=== PATIENT | male | born 1975 | race Caucasian/White ===

== ENCOUNTER 2020-09-06 05:31 | Emergency (ER) | payer OTHER ==
[2020-09-06 05:48] VITALS: BP 121/72
--- NOTE | 2020-09-06 06:02 | ED Physician Documentation ---
PD HPI OPHTHO - Stated complaint Stated Complaint: R EYE PX - Chief complaint Chief Complaint: Heent - History obtained from History obtained from: Patient - History of Present Illness Timing - onset: Yesterday (last evening, after coming in from doing yard work, he rubbed his right eye and felt onset of pain. Has scratchy feeling of FB upper medial area. It has continued into this morning, and bothered him through the night. Has tried Visine and irrigating eye.) Timing - details: Abrupt onset, Still present Location: Right Quality / character: Aching Associated symptoms: Redness, Tearing, FB sensation. No: Swelling, Discharge, Photophobia, Decreased vision Contributing factors: FB (he presumes FB as onset when rubbed eye after doing yardwork). No: Wears contacts Similar symptoms before: Has not had sx before Review of Systems Constitutional: denies: Fever, Chills Eyes: reports: Irritation. denies: Loss of vision, Decreased vision, Photophobia Nose: denies: Rhinorrhea / runny nose, Congestion Throat: denies: Sore throat Respiratory: denies: Cough PD PAST MEDICAL HISTORY - Past Medical History Past Medical History: No Cardiovascular: None Respiratory: None Neuro: None Endocrine/Autoimmune: None GI: None : None HEENT: None Psych: None Musculoskeletal: None Derm: None - Past Surgical History Past Surgical History: Yes General: Other Ortho: Other - Present Medications Home Medications: Ambulatory Orders Medication Instructions Recorded Confirmed Erythromycin Base [Erythromycin 1 applic OP QID #3.5 gm 09/06/20 Ophthalmic Ointment] Tetracaine 0.5% Ophth Drops 2 drops RIGHTEYE Q2H PRN #4 ml 09/06/20 [Tetracaine] - Allergies Allergies/Adverse Reactions: Allergies Allergy/AdvReac Type Severity Reaction Status Date / Time No Known Drug Allergies Allergy Verified 09/06/20 05:47 - Social History Does the pt smoke?: No Smoking Status: Never smoker Does the pt drink ETOH?: No Does the pt have substance abuse?: No - Immunizations Immunizations are current?: Yes - POLST Patient has POLST: No PD ED PE NORMAL - Vitals Vital signs reviewed: Yes - General General: Alert and oriented X 3, Well developed/nourished - HEENT HEENT: PERRL, EOMI PD ED PE EXPANDED - Eyes Eyes: Injected conj/sclera (hyperemic), Corneal abrasion (at the 1 oclock position, small linear. No FB noted including looking under lid and with flourescein.), Fluorescein uptake, Anterior chambers clear. No: Eyelid swelling, Eyelid erythema, Conj/sclera FB, Corneal FB, Corneal ulcer Results - Vitals Vitals: Vital Signs - 24 hr 09/06/20 05:45 Temperature 36.0 C L Heart Rate 80 Respiratory 15 Rate Blood Pressure 121/72 O2 Saturation 97 Oxygen O2 Source Room air PD MEDICAL DECISION MAKING - ED course Complexity details: re-evaluated patient (improved with proparacaine, though not completely.), considered differential (No FB seen. There is an abrasion noted 1 oclock area under upper lid. Pupil reactive. Not light sensitive. ), d/w patient Departure - Departure Disposition: 01 Home, Self Care Clinical Impression: Corneal abrasion Qualifiers: Encounter type: initial encounter Laterality: right Qualified Code(s): S05.01XA - Injury of conjunctiva and corneal abrasion without foreign body, right eye, initial encounter Eye pain Qualifiers: Laterality: right Qualified Code(s): H57.11 - Ocular pain, right eye Condition: Stable Record reviewed to determine appropriate education?: Yes Instructions: ED Eye Injury Corneal Abrasion Follow-Up: [facility] [Provider Group] Prescriptions: Erythromycin Base [Erythromycin Ophthalmic Ointment] 1 applic OP QID #3.5 gm Tetracaine 0.5% Ophth Drops [Tetracaine] 2 drops RIGHTEYE Q2H PRN #4 ml PRN Reason: Pain Comments: Tylenol ibuprofen if needed for pains. Main treatment is usually local. Numbing eyedrops can be used short-term for a day to help with the discomfort of the abrasion. Do not use it longer as we want to see if this is doing better in should not need treatment beyond that timeframe. Also use lubricating eye ointment every 3-4 hours to help with the discomfort as well. Recheck with an eyeglass frames polisher or return to the ER if not improving into tomorrow. Off work today to help rest the eye. Forms: Activity restrictions Discharge Date/Time: 09/06/20 06:48
[2020-09-06] MEDS ORDERED: PROPARACAINE 0.5% OPHTH DROPS 15 ML RIGHTEYE STA (06:03)
[2020-09-06] MEDS ORDERED: IBUPROFEN 600 MG TABLET PO STA (06:26)
[2020-09-06] MEDS ORDERED: ERYTHROMYCIN OPHTH OINT 1 GM TUBE RIGHTEYE STA (06:27)
[2020-09-06] MEDS ORDERED: ACETAMINOPHEN 500 MG TABLET PO STA (06:37)
== END 2020-09-06 06:48 | disposition home or self-care (01) ==
LOC: ED 05:31
DX: S05.01XA Injury of conjunctiva and corneal abrasion without foreign body, right eye, initial encounter (principal); X58.XXXA Exposure to other specified factors, initial encounter; Y93.H9 Activity, other involving exterior property and land maintenance, building and construction; H57.11 Ocular pain, right eye
CPT/HCPCS: 99282; 99283; J3490

== ENCOUNTER 2021-07-06 17:27 | Emergency (ER) | payer OTHER ==
[2021-07-06] MEDS ORDERED: oxyCODONE 5 MG TABLET PO STA (17:42)
--- NOTE | 2021-07-06 17:54 | ED Physician Documentation ---
History of Present Illness - Stated complaint Stated Complaint: R SHOULDER PX - Chief complaint Chief Complaint: Trauma Ext - History obtained from History obtained from: Patient - History of Present Illness Timing: Today Pain level max: 9 Pain level now: 9 - Additonal information Additional information: Patient is a 45-year-old male who presents to the emergency department stating that he was out in his backyard playing soccer with his children when he slipped, fell and injured the right ankle. He states that on the way down he tried to grab his right ankle and fell onto the right shoulder. Now has right shoulder pain as well. No head, neck, back pain. No numbness or tingling. Worse with movement, better with rest. Took Tylenol prior to arrival. Review of Systems Constitutional: denies: Fever, Chills Respiratory: denies: Cough GI: denies: Nausea, Vomiting, Diarrhea Skin: denies: Rash Musculoskeletal: denies: Neck pain, Back pain Neurologic: denies: Focal weakness, Numbness, Headache, Head injury PD PAST MEDICAL HISTORY - Past Medical History Past Medical History: No Cardiovascular: None Respiratory: None Neuro: None Endocrine/Autoimmune: None GI: None : None HEENT: None Psych: None Musculoskeletal: None Derm: None - Past Surgical History Past Surgical History: Yes General: Other Ortho: Other - Present Medications Home Medications: Ambulatory Orders Medication Instructions Recorded Confirmed Ibuprofen [Motrin] 800 mg PO QPM 07/06/21 07/06/21 Oxycodone HCl/Acetaminophen 1 - 2 each PO Q6H PRN #14 tablet 07/06/21 [Percocet 5-325 mg Tablet] clonazePAM [Klonopin] 1 mg PO QPM 07/06/21 07/06/21 - Allergies Allergies/Adverse Reactions: Allergies Allergy/AdvReac Type Severity Reaction Status Date / Time No Known Drug Allergies Allergy Verified 07/06/21 17:32 - Social History Does the pt smoke?: No Smoking Status: Never smoker Does the pt drink ETOH?: No Does the pt have substance abuse?: No - Immunizations Immunizations are current?: Yes - POLST Patient has POLST: No PD ED PE NORMAL - Vitals Vital signs reviewed: Yes - General General: Alert and oriented X 3, No acute distress, Well developed/nourished - HEENT HEENT: Atraumatic, Moist mucous membranes - Neck Neck: Supple, no meningeal sign, No bony TTP - Cardiac Cardiac: RRR - Respiratory Respiratory: No respiratory distress, Clear bilaterally - Back Back: No spinal TTP - Derm Derm: Warm and dry - Extremities Extremities: Other - Neuro Neuro: Alert and oriented X 3 - Psych Psych: Normal mood, Normal affect - Free text exam Free text exam: Tender to palpation right lower extremity, right lateral malleolus with mild swelling and tenderness. Also tender palpation over the right anterior glenohumeral joint. No deformity. Neurovascular intact. Very limited range of motion of the right shoulder secondary to pain. No tenderness over the Clavicle. Neurovascular intact including the axillary nerve Results - Vitals Vitals: Vital Signs - 24 hr 07/06/21 07/06/21 17:34 19:30 Temperature 36.8 C Heart Rate 88 75 Respiratory 18 14 Rate Blood Pressure 125/77 115/90 H O2 Saturation 99 97 Oxygen O2 Source Room air - Rads (name of study) Right shoulder x-ray Radiology: Final report received, EMP read contemporaneously, See rad report (No acute abnormality) Right ankle x-ray Radiology: Final report received, EMP read contemporaneously, See rad report (No acute abnormality) PD MEDICAL DECISION MAKING - ED course Complexity details: reviewed results, re-evaluated patient, considered differential, d/w patient ED course: No acute finding on x-rays of the shoulder or ankle. Placed in a sling for comfort. Will prescribe pain medication for home. Possible rotator cuff injury? We will have him follow-up with orthopedics for repeat evaluation in 1 week. He declines any bracing for the ankle. I am prescribing a short course of short-acting opioid pain medication for this patient. I have reviewed the patients [employer] and no concerning findings were noted. I have discussed that the opioids are for short term therapy only, and will not be refilled from the ED. patient counseled regarding signs and symptoms for which I believe and urgent re-evaluation would be necessary. Patient with good understanding of and agreement to plan and is comfortable going home at this time This document was made in part using voice recognition software. While efforts are made to proofread this document, sound alike and grammatical errors may occur. Departure - Departure Disposition: 01 Home, Self Care Clinical Impression: Sprain of shoulder, right Qualifiers: Encounter type: initial encounter Shoulder sprain type: unspecified sprain Qualified Code(s): S43.401A - Unspecified sprain of right shoulder joint, initial encounter Sprain of ankle, right Qualifiers: Encounter type: initial encounter Involved ligament of ankle: unspecified ligament Qualified Code(s): S93.401A - Sprain of unspecified ligament of right ankle, initial encounter Condition: Good Instructions: ED Sprain Shoulder, ED Sprain Ankle Follow-Up: JOHN MCINTOSH III, MD [Primary Care Provider] - Within 1 week [facility] [Provider Group] - Within 1 week Prescriptions: Oxycodone HCl/Acetaminophen [Percocet 5-325 mg Tablet] 1 - 2 each PO Q6H PRN #14 tablet PRN Reason: pain Comments: Your prescriptions were sent to the [facility] pharmacy. Wear the sling as needed for comfort. You can gently stretch the shoulder as well. Please return if you worsen. Please follow-up with your doctor for further care. I would recommend that you see an orthopedist to exclude any rotator cuff injury. Your exam is limited tonight secondary to swelling and pain. The x-rays of your shoulder and ankle do not show any acute injuries. I am prescribing a short course of narcotic pain medication for you. These are potentially dangerous and addictive medications that should be used carefully. These medications may constipate you. Take an nbfo-rtg-txgxrga stool softener (docusate) twice daily with plenty of water while taking these medications. If you go 24 hours without a bowel movement, take chfh-[id number] miralax, per package instructions. Do not drink or drive while taking these medications. If you received narcotic or sedating medications while in the emergency department, do not drive for 24 hours. Store this medication in a safe, secure place and out of reach of children. It is a violation of federal law to give or sell this medication to another person or to use in a manner other than prescribed. The ED will not refill narcotic prescriptions, including prescriptions lost or stolen. To dispose of unwanted medications: 1. [facility] [address] in [place] has a medication drop box. They accept prescription medications (in pill form) Wednesday through Wednesday 9:00 a.m. to 5:00 p.m. 2. The [facility] accepts prescription medications (in pill form only) for disposal year round. Call for more inform ation. 3. Contact the [facility] for the next [facility] sponsored prescription drug collection event. , [phone], or [phone]; Discharge Date/Time: 07/06/21 19:35
--- NOTE | 2021-07-06 18:47 | XRAY Report ---
PROCEDURE: Ankle 3 View RT INDICATIONS: fall, R ankle pain TECHNIQUE: 3 views of the ankle were acquired. COMPARISON: None. FINDINGS: BONES: No acute, displaced fracture or dislocation. The ankle mortise is maintained on these nonstre ssed views. A 6.8 mm ossific lesion projects from the lateral malleolus, compatible with remote traum atic injury and/or degenerative change. SOFT TISSUES: Small tibiotalar joint effusion. IMPRESSION: 1.No acute osseous abnormality. Reviewed by: Kj Mccartney MD on 07/06/2021 6:46 PM PDT Approved by: Kj Mccartney MD on 07/06/2021 6:46 PM PDT Station ID: [id number]
--- NOTE | 2021-07-06 18:49 | XRAY Report ---
PROCEDURE: Shoulder 3 View RT INDICATIONS: fall, R shoulder pain TECHNIQUE: 3 views of the shoulder were acquired. COMPARISON: None. FINDINGS: BONES: No acute, displaced fracture. The joint spaces are maintained. SOFT TISSUES: No focal abnormality or appreciable pneumothorax. IMPRESSION: 1.No acute osseous abnormality. Reviewed by: Kj Mccartney MD on 07/06/2021 6:47 PM PDT Approved by: Kj Mccartney MD on 07/06/2021 6:47 PM PDT Station ID: [id number]
[2021-07-06 19:37] VITALS: BP 115/90
== END 2021-07-06 19:35 | disposition home or self-care (01) ==
LOC: ED 17:27
DX: S43.401A Unspecified sprain of right shoulder joint, initial encounter (principal); S93.401A Sprain of unspecified ligament of right ankle, initial encounter; W01.0XXA Fall on same level from slipping, tripping and stumbling without subsequent striking against object, initial encounter; Y93.66 Activity, soccer
CPT/HCPCS: 73030; 73610; 99282; 99283; A9270

== ENCOUNTER 2023-02-08 10:19 | Outpatient (CLI) | payer OTHER ==
--- NOTE | 2023-02-08 13:11 | MRI Report ---
PROCEDURE: CERVICAL SPINE WO INDICATIONS: CERVICAL RADICULOPATHY TECHNIQUE: Noncontrast sagittal T1 spin echo and T2 fast spin echo, sagittal STIR, foraminal oblique sagittal T2 fast spin echo, and axial gradient echo or T2 fast spin echo through the cervical spine. COMPARISON: None. FINDINGS: Image quality: Excellent. Alignment and Curvature: Straightening of normal cervical lordosis. Minimal anterolisthesis of C3 on C4.. Bone Marrow: Marrow demonstrates normal overall signal. Spinal Cord: Visualized spinal cord has normal size and signal. No cerebellar tonsillar herniation. Paraspinous Soft Tissues: No paravertebral masses. Prevertebral soft tissues are normal in thicknes s. C2-C3: Disc desiccation and mild posterior disc ossify thrombus. No significant central canal stenos is. Facet and uncovertebral arthropathy. Moderate right and mild left neuroforaminal stenosis. C3-C4: Disc desiccation and posterior disc osteophyte complex abutting the ventral cord. Mild centr al canal stenosis. Facet and uncovertebral arthropathy. Severe left and moderate to severe right neur oforaminal stenosis. C4-C5: Disc desiccation. Minimal posterior disc ossify comments. No central canal stenosis. Facet an d uncovertebral arthropathy. Mild to moderate bilateral neuroforaminal stenosis. C5-C6: Disc desiccation. No central canal stenosis. Facet and uncovertebral arthropathy. Mild to mod erate bilateral neuroforaminal stenosis. C6-C7: Disc desiccation and minimal posterior disc osteophyte complex. No central canal stenosis. Fa cet and uncovertebral arthropathy. Mild bilateral neuroforaminal stenosis. C7-T1: No central canal or neuroforaminal stenosis. IMPRESSION: 1.Multilevel degenerative changes of the cervical spine as described above. 2.Mild central canal stenosis at C3-C4. Otherwise, no significant central canal stenosis. 3.Neuroforaminal stenosis is most pronounced at C3-C4 with severe left and moderate to severe right. Other levels of mild and moderate neuroforaminal stenosis as above. Reviewed by: Jv Contreras MD on 02/08/2023 1:10 PM PST Approved by: Jv Contreras MD on 02/08/2023 1:10 PM PST Station ID: [id number]
== END 2023-02-08 10:20 | disposition home or self-care (01) ==
LOC: DI 10:19
PROVIDERS: ATTEND Student in an Organized Health Care Education/Training Program
DX: M48.02 Spinal stenosis, cervical region (principal); M47.22 Other spondylosis with radiculopathy, cervical region; M50.11 Cervical disc disorder with radiculopathy, high cervical region

== ENCOUNTER 2023-04-26 10:07 | Outpatient (CLI) | payer OTHER ==
--- NOTE | 2023-04-26 22:22 | SLEEP CARE CONSULTATION ---
Information from patient questionnaire entered by Shad Marmolejo. I have reviewed and concur with the information entered by Shad Marmolejo. This document represents the service I personally performed and the decisions made by me, Rosalia Medina MD, [facility]. History of Present Illness Service Date and Time: 04/26/2023 1007 Reason for Visit: New patient Chief Complaint: reports: Insomnia, Unrefreshed sleep, Snoring, Excessive daytime sleepiness, Observed pauses in breathing, Frequent awakenings at night Date of Onset: 4YRS Usual bedtime: 1030PM Time it takes to fall asleep: 1HR Snores at night: Yes Observed to quit breathing while asleep: Yes Sleeps alone due to snoring: No Number of times waking at night: 2-3 Reasons for waking at night: reports: Choking, Gasping for air Toss, Turn, or Twitch while sleeping: Yes Recalls having dreams: Yes Usually gets out of bed at: 6AM Feels refreshed in the morning: No Morning headache: Yes Sleepy or fatigued during the day: Yes Ever fallen asleep while driving: No Takes day naps: Yes Dreams during day naps: No Prior sleep studies: Yes Additional HPI information: I had the pleasure of seeing Mr. Dalton today regarding the possibility of him having a sleep disorder. As you know, he is a 47-year-old gentleman who complains of loud snore, observed apneas, frequent awakenings, unrefreshed sleep, and excessive daytime sleepiness for the past 4 years. He had a home sleep apnea test (HSAT) in 2019 showing mild obstructive sleep apnea-hypopnea with an AHI of 5.6 and viv oxygen saturation 60% (most likely an artifact because it cannot be seen on the oxygen saturation tracing). He said because of the COVID pandemic, CPAP was not started. He is here today to get started on the treatment. The patient tells me that he normally goes to bed around 10:30 pm, and it takes him approximately 60 minutes to fall asleep. He has been told that he snores loudly and irregularly at night. He has also been observed to stop breathing in his sleep. His can still sleep in the same bed. He can recall waking up on the average of 2 - 3 times during the night. Most of the time he wakes up because of his own snoring, choking, and having to gasp for air. In the morning he usually gets up out of the bed around 6 a.m. not feeling refreshed nor rested. He usually has a morning headache that goes away in about 2 hours. During the day he complains of feeling sleepy and fatigued. His score on [place] Sleepiness Scale is 12 out of 24. He never has fallen asleep while driving nor has had any accident due to sleepiness. He usually takes naps during the day. He reports having impaired concentration during the day. - Parasomnia Symptoms Walks in sleep: No Talks in sleep: No Ever acted out dreams in sleep: No Ever felt weak in the knees when startled or emotional: No Bothered by creepy, crawly, restless sensations in legs: No Problems with memory or concentration: Yes Subjective Initial [place] Sleepiness Scale score: 12 (04/07/23) Past Medical History Past Medical History: reports: Anxiety, Depression, Other (PINCHED NECK NERVE, BACK PAIN, TMJ, FACIAL SPASMS, KNEE PAIN, IBD, MIGRAINS) Social History The patient's occupation is a AM. Patient is and lives in [place]. Have you smoked in the past 12 months: No Cigarettes per day (20/pack): 20 Years of smokin Quit date: 2009 Smoking Pack Years: 14.0 Alcohol use: Yes Alcohol amount and frequency: 2 2 TIMES A WEEK Caffeine use: Yes Caffeine amount and frequency: 2 PER DAY Family History Family history of sleep disordered breathing: Yes Family Hx Sleep Apnea: Mother: Snoring, Sleep apnea - Untreated, Father: Snoring, Sleep apnea - Untreated Allergies and Home Medications Known drug allergies: No Drug allergies reviewed: Yes Home medication list reviewed: Yes Allergy and home medication list: Allergies No Known Drug Allergies Allergy (Verified 04/23/23 10:20) Review of Systems Weight gain over past 5 years: 40 Cardiovascular: denies: high blood pressure, palpitations, chest pain, irregular heart rate or pulse, leg or foot swelling, have to sleep sitting up, other Respiratory: reports: chronic cough Gastrointestinal: reports: diarrhea Urinary: denies: incontinence, frequency, urgency, impotence, other Neurological: reports: headaches Psychiatric: reports: anxiety, depression Ear/Nose/Throat: reports: sinus problems, wisdom teeth removed Endocrine: reports: sluggishness Musculoskeletal: reports: joint pain, neck pain, back pain, muscle pain or cramping, mobility problems Immunologic: denies: sneezing, rash, itching, allergies to food or environment, other Physical Exam Vital signs obtained and entered by: SHAD Peterson MA Blood Pressure: 125/87 (LEFT ARM) Cuff size: regular Heart Rate: 110 O2 Saturation: 98 Height: 5 ft 10 in Weight: 195 lb 12.8 oz Body Mass Index: 28.0 BMI Classification: Overweight Neck circumference: 16 Mood/affect: Normal HEENT: No craniofacial malformation Nostrils: patent to airflow Turbinates: normal Septum: midline Mouth and throat: narrow oropharynx Soft palate: long Hard palate: normal Uvula: normal Uvula visualization: 50% Mallampati Class II Tongue: normal in size Tonsils: small Chin and jaw: normal size and position Neck: normal w/o lymphadenopathy or thyromegaly Heart: regular rate and rhythm Lungs: clear bilaterally Extremities: no edema or clubbing Neurologic: intact Impression and Plan IMPRESSION: 1. Obstructive Sleep Apnea-Hypopnea Syndrome, mild, not yet treated. The patient appears to be symptomatic for loud and irregular snoring, frequent awakenings during the night, nocturnal choking, unrefreshed sleep, cognitive impairment, and daytime hypersomnolence. Narrow oropharynx is a common predisposing factors for obstructive sleep apnea-hypopnea syndrome. I recommend proceeding to CPAP titration study to determine the optimal treatment pressure and mask fit. Plan: 1. Schedule manual CPAP titration study and return in 1 to 2 weeks after the study to discuss result and initiate therapy. 2. Avoid long distance driving or when feeling sleepy. 3. Avoid alcohol, sedatives, and muscle relaxants around bedtime. 4. Attempt to lose weight. Follow up with [facility] Care in: 1-2 months Visit Type: In Office Time Spent with Patient (minutes): 15 Provider Statement: I spent 100% of the Face to Face Visit with the patient with greater than 50% spent counseling the patient and coordination of care.
[2023-04-26 22:25] VITALS: BP 125/87; O2SAT 98
== END 2023-04-26 10:08 | disposition home or self-care (01) ==
LOC: SC 10:07
PROVIDERS: ATTEND Internal Medicine Pulmonary Disease
DX: G47.33 Obstructive sleep apnea (adult) (pediatric) (principal)
CPT/HCPCS: 99202; 99212

== ENCOUNTER 2023-05-18 20:23 | Outpatient (CLI) | payer OTHER | END 2023-05-18 20:24 | disposition home or self-care (01) | LOC: SC 20:23 | PROVIDERS: ATTEND Internal Medicine Pulmonary Disease | DX: G47.33 Obstructive sleep apnea (adult) (pediatric) (principal) | CPT/HCPCS: 95811 ==

== ENCOUNTER 2023-06-02 10:31 | Outpatient (CLI) | payer OTHER ==
--- NOTE | 2023-06-02 10:05 | SLEEP CARE CONSULTATION ---
Information from patient questionnaire entered by Shameka Marmolejo. I have reviewed and concur with the information entered by Shameka Marmolejo. This document represents the service I personally performed and the decisions made by , Lupe Walsh ARNP. History of Present Illness Service Date and Time: 06/02/2023 0940 Initial [place] Sleepiness Scale score: 12 (04/07/23) Current [place] Sleepiness Scale score: 11 (06/02/23) Additional HPI information: KAHLIL MURRELL returns via telephone appointment for follow up of the sleep study with a manual CPAP titration study performed on 05/18/23. The patient was informed of the following polysomnography findings: CPAP at 5 cmH2O appeared to be optimal (AHI of 0.3 per hour on the pressure). There was supine REM sleep on the pressure. Oxygen saturation was normal throughout the night. The patient appeared to have tolerated positive airway pressure therapy fairly well. I explained how CPAP machine works and what to expect when using the machine. Using CPAP every night in order to get used to it was emphasized. Patient advised to put CPAP mask on before getting into bed so as not to fall asleep without CPAP. To assist acclimation to CPAP use, it could also be used for a short time during day while reading or watching TV. The patient was instructed to call the CPAP supplier to discuss any mechanical problem that may occur. If the mask given is uncomfortable or is difficult to keep on through the night even with adjustment, contact the CPAP supplier as many will replace with another mask style if notified before 30 days. If snoring or perceives is not getting enough air or too much air from the machine, notify this office. Patient counseled not drink alcohol less than 4 hours before bedtime as it can increase snoring and apnea. Patient was cautioned about risks of drowsy driving until sleepiness symptoms resolve. Patient denies drowsy driving. Sleep Study - Results Type of Sleep Study: Polysomnography (TITRATION F/U COMPLETED 05/18/23) Prior sleep studies: Yes Polysomnography/Home Sleep Study results: IMPRESSION: The quality of the study is good. CPAP was initiated at 5 cmH2O and titrated up to CPAP at 5 cmH2O. CPAP at 5 cmH2O appeared to be optimal (AHI of 0.3 per hour on the pressure). There was supine REM sleep on the pressure. Oxygen saturation was normal throughout the night. The patient appeared to have tolerated positive airway pressure therapy fairly well. The patients sleep efficiency was reduced due to sleep onset insomnia and director of early childhood awakening. The sleep architecture was relatively normal considering the first-night effect. There was no periodic leg movement of sleep. Cardiac rhythm was normal sinus rhythm without significant arrhythmia. No abnormal behavior (parasomnia) observed during the night. Allergies and Home Medications Known drug allergies: No Drug allergies reviewed: Yes Home medication list reviewed: Yes (no changes) Allergy and home medication list: Allergies No Known Drug Allergies Allergy (Verified 05/31/23 09:43) Review of Systems Review of systems same as previous: Yes (NO CHANGE) Physical Exam Vital signs obtained and entered by: SHAMEKA Peterson MA Height: 5 ft 10 in (PER PT ) Weight: 193 lb (PER PT) Body Mass Index: 27.6 BMI Classification: Overweight Impression and Plan 1. Obstructive Sleep Apnea-Hypopnea Syndrome, mild. Kahlil returns to office after titration study to be set up on CPAP therapy. Positive pressure therapy could benefit anxiety, depression and migraines. His titration study showed his optional pressure to be at 5 cmH2O and that 4-6 cmH2O would also be appropriate. The patient will be started on nasal autoCPAP therapy with pressure set at 4-6 cmH2O. Compliance guidelines also reviewed. A copy of compliance guidelines will be given for reference at check out. He voiced understanding and agreement with plan of care. 2. Overweight, unspecified. Currently patients BMI is 27.6. Obesity increases the risk of apnea, CPAP pressure requirements and overall health risks especially cardiovascular and diabetes. Thus patient is advised to lose weight. * Nasal auto CPAP therapy, pressure at 4-6 cmH2O. * Attempt to lose weight. * Avoid alcohol consumption near bedtime. * Avoid supine sleep until using CPAP. * The patient is again cautioned about driving until sleepiness completely resolves. * Return one month after CPAP obtained. I will assess response to therapy and compliance at that time. Counseling Topics: Weight loss health impact Prescriptions: Auto CPAP Visit Type: Telehealth Phone Video Type: Jasson Patient Location: Home Location of Provider: Office Patient agrees and consents to this telehealth visit type: Yes Time Spent with Patient (minutes): 14 Provider Statement: I spent 100% of the Telehealth Phone Call with the patient with greater than 50% spent counseling the patient and coordination of care.
== END 2023-06-02 10:32 | disposition home or self-care (01) ==
LOC: SC 10:31
PROVIDERS: ATTEND Nurse Practitioner Family
DX: G47.33 Obstructive sleep apnea (adult) (pediatric) (principal); E66.3 Overweight; Z68.27 Body mass index [BMI] 27.0-27.9, adult
CPT/HCPCS: 99442

== ENCOUNTER 2023-07-11 11:22 | Emergency (ER) | payer OTHER ==
[2023-07-11 11:52] VITALS: BP 121/89; O2SAT 95
--- NOTE | 2023-07-11 12:14 | XRAY Report ---
PROCEDURE: Chest 2V INDICATIONS: cough TECHNIQUE: 2 views of the chest were acquired. COMPARISON: None. FINDINGS: Surgical changes and devices: None. Lungs and pleura: No pleural effusions or pneumothorax. Lungs are clear. Mediastinum: Mediastinal contours appear normal. Heart size is normal. Bones and chest wall: No suspicious bony lesions. Overlying soft tissues appear unremarkable. IMPRESSION: No acute cardiopulmonary process. Reviewed by: Lokesh Carver MD on 07/11/2023 11:12 AM KATTY Approved by: Lokesh Carver MD on 07/11/2023 11:12 AM KATTY Station ID: [id number]
[2023-07-11 13:13] LABS: B. PARAPERTUSSIS- RESP PCR PAN NOT DETECTED; B. PERTUSSIS- RESP PCR PANEL NOT DETECTED; C. PNEUMONIAE- RESP PCR PANEL NOT DETECTED; CORONAVIRUS 229E-RESP PCR NOT DETECTED; CORONAVIRUS HKU1-RESP PCR NOT DETECTED; CORONAVIRUS NL63-RESP PCR NOT DETECTED; CORONAVIRUS OC43-RESP PCR NOT DETECTED; HUMAN METAPNEUMOVIRUS NOT DETECTED; INFLUENZA A- RESP PCR PANEL NOT DETECTED; INFLUENZA B - RESP PCR PANEL NOT DETECTED; M. PNEUMONIAE- RESP PCR PANEL NOT DETECTED; PARAINFLUENZA VIRUS 1 NOT DETECTED; PARAINFLUENZA VIRUS 2 NOT DETECTED; PARAINFLUENZA VIRUS 3 NOT DETECTED; PARAINFLUENZA VIRUS 4 NOT DETECTED; RHINOVIRUS/ENTEROVIRUS NOT DETECTED; RSV- RESP PCR PANEL NOT DETECTED; SARS-CoV-2 -RESP PCR PANEL NOT DETECTED
--- NOTE | 2023-07-11 13:29 | ED Physician Documentation ---
PD HPI URI - Stated complaint Stated Complaint: SOA/THROAT PX/CONGESTION - Chief complaint Chief Complaint: Resp - History obtained from History obtained from: Patient - History of Present Illness Timing - onset: How many days ago (2) Timing duration: Days (2) Timing details: Gradual onset Pain level max: 5 Pain level now: 5 Associated symptoms: Nasal congestion, Rhinorrhea, Sore throat, Productive cough. No: Fever Contributing factors: No: Travel, Immunocompromised, COPD / asthma Improves by: Rest Worsened by: Activity, Breathing Recently seen: Not recently seen - Additional information Additional information: Patient is a 47-year-old male who complains of cough, body aches and a hoarse voice today. He states he coughed up brown sputum. He does use CPAP at night. He states that he took his usual oxycodone today which helped his body aches. He states that about 2 weeks ago he had an injection into the right side of his neck for cervical radiculopathy. Does not have any swelling or redness at this site. Review of Systems Constitutional: denies: Fever Nose: reports: Rhinorrhea / runny nose, Congestion Respiratory: reports: Cough GI: denies: Vomiting, Diarrhea Skin: denies: Rash Musculoskeletal: denies: Neck pain, Back pain Neurologic: denies: Headache PD PAST MEDICAL HISTORY - Past Medical History Past Medical History: Yes Cardiovascular: None Respiratory: Sleep apnea, CPAP use Neuro: Other Endocrine/Autoimmune: None GI: Other : None HEENT: None Psych: None Musculoskeletal: None Derm: None Other Past Medical History: IBS - Past Surgical History Past Surgical History: Yes General: Colonoscopy, Other Ortho: Other - Present Medications Home Medications: Ambulatory Orders Medication Instructions Recorded Confirmed Ibuprofen [Motrin] 800 mg PO QPM 07/06/21 06/02/23 Oxycodone HCl/Acetaminophen 1 - 2 each PO Q6H PRN #14 tablet 07/06/21 06/02/23 [Percocet 5-325 mg Tablet] clonazePAM [Klonopin] 1 mg PO QPM 07/06/21 06/02/23 Acetaminophen [Tylenol] See Rx Instructions .ROUTE .COMPLEX 04/26/23 06/02/23 Cyclobenzaprine [Flexeril] See Rx Instructions .ROUTE .COMPLEX 04/26/23 06/02/23 Gabapentin [Neurontin] See Rx Instructions .ROUTE .COMPLEX 04/26/23 06/02/23 Oxycodone HCl/Acetaminophen See Rx Instructions .ROUTE .COMPLEX 04/26/23 06/02/23 [Percocet 10-325 mg Tablet] Acetaminophen [Tylenol] 325 mg PO Q6H PRN #30 tablet 07/11/23 Benzonatate [Tessalon] 200 mg PO TID PRN #30 cap 07/11/23 Cetirizine HCl/Pseudoephedrine 1 tab PO BID PRN #20 tab 07/11/23 [Zyrtec-D ER 5 mg-120 mg Tablet] - Allergies Allergies/Adverse Reactions: Allergies Allergy/AdvReac Type Severity Reaction Status Date / Time No Known Drug Allergies Allergy Verified 07/11/23 11:42 - Social History Does the pt smoke?: No Smoking Status: Former smoker Does the pt drink ETOH?: Yes Does the pt have substance abuse?: No - Immunizations Immunizations are current?: Yes - POLST Patient has POLST: No PD ED PE NORMAL - Vitals Vital signs reviewed: Yes - General General: Alert and oriented X 3, No acute distress - HEENT HEENT: PERRL, Ears normal, Moist mucous membranes, Pharynx benign, Other - Neck Neck: Supple, no meningeal sign - Cardiac Cardiac: RRR, Strong equal pulses - Respiratory Respiratory: No respiratory distress, Clear bilaterally - Abdomen Abdomen: Soft, Non tender, Non distended - Derm Derm: Warm and dry, No rash - Neuro Neuro: Alert and oriented X 3 - Psych Psych: Normal mood, Normal affect Results - Vitals Vitals: Vital Signs - 24 hr 07/11/23 11:44 Temperature 36.3 C L Heart Rate 123 H Respiratory 20 Rate Blood Pressure 121/89 H O2 Saturation 95 Oxygen O2 Source Room air - Labs Labs: Laboratory Tests 07/11/23 11:50 Nasal Adenovirus (PCR) NOT DETECTED Nasal B. parapertussis DNA (PCR) NOT DETECTED Nasal Coronavir 229E PCR NOT DETECTED Nasal Coronavir HKU1 PCR NOT DETECTED Nasal Coronavir NL63 PCR NOT DETECTED Nasal Coronavir OC43 PCR NOT DETECTED Nasal Enterovir/Rhinovir PCR NOT DETECTED Nasal Influenza B PCR NOT DETECTED Nasal Influenza A PCR NOT DETECTED Nasal Parainfluen 1 PCR NOT DETECTED Nasal Parainfluen 2 PCR NOT DETECTED Nasal Parainfluen 3 PCR NOT DETECTED Nasal Parainfluen 4 PCR NOT DETECTED Nasal RSV (PCR) NOT DETECTED Nasal B.pertussis DNA PCR NOT DETECTED Nasal C.pneumoniae (PCR) NOT DETECTED Oswald Human Metapneumo PCR NOT DETECTED Nasal M.pneumoniae (PCR) NOT DETECTED Nasal SARS-CoV-2 (PCR) NOT DETECTED - Rads (name of study) Chest x-ray Relevant Findings:: Final report received, See rad report PD Medical Decision Making - ED course Complexity details: reviewed results, considered differential, d/w patient ED course: Patient is a 47-year-old male who presents to the emergency department with cough, congestion. Appears to be a viral URI. No acute findings on chest x-ray or respiratory PCR. He does have hoarseness to his voice, will give a dose of dexamethasone to see if this helps with the laryngitis. No indication for antibiotics. No hypoxia. No respiratory distress. Tolerating p.o. without difficulty. He does request that he prescribe Tylenol at home for pain. He has oxycodone with Tylenol, he states that he keep strict track of the Tylenol he intakes and does not exceed 4000 mg/day. Recommend that he decrease this to 3000 mg/day if he is on Tylenol chronically. Recommend he follow-up closely with his doctor for further care. Patient counseled regarding signs and symptoms for which I believe and urgent re-evaluation would be necessary. Patient with good understanding of and agreement to plan and is comfortable going home at this time This document was made in part using voice recognition software. While efforts are made to proofread this document, sound alike and grammatical errors may occur. Departure - Departure Disposition: 01 Home, Self Care Clinical Impression: Upper respiratory tract infection Qualifiers: URI type: unspecified URI Qualified Code(s): J06.9 - Acute upper respiratory infection, unspecified Condition: Good Instructions: ED Viral Syndrome Follow-Up: your,doctor in 3 days [Other] Prescriptions: Benzonatate [Tessalon] 200 mg PO TID PRN #30 cap PRN Reason: Cough Acetaminophen [Tylenol] 325 mg PO Q6H PRN #30 tablet PRN Reason: PRN PAIN &/OR FEVER Cetirizine HCl/Pseudoephedrine [Zyrtec-D ER 5 mg-120 mg Tablet] 1 tab PO BID PRN #20 tab PRN Reason: nasal congestion Comments: Your prescriptions were sent to [facility] in [place]. Your chest x-ray does not show any evidence of pneumonia. Your respiratory panel does not show any evidence of influenza, COVID, RSV, etc. You appear to have a viral illness. This should improve over the next few days. Continue your current medications at home and return if you worsen. Forms: PCP List
[2023-07-11] MEDS: CHERRY SYRUP 10 ML UDC PO ONE (13:37)
[2023-07-11] MEDS: DEXAMETHASONE 10 MG/ML VIAL PO STA (13:37)
== END 2023-07-11 13:41 | disposition home or self-care (01) ==
LOC: ED 11:22
DX: J06.9 Acute upper respiratory infection, unspecified (principal); Z11.52 Encounter for screening for COVID-19; Z87.891 Personal history of nicotine dependence
CPT/HCPCS: 71046; 87633; 99283; 99284; A9270

== ENCOUNTER 2023-07-16 13:46 | Outpatient (CLI) | payer OTHER ==
--- NOTE | 2023-07-16 14:25 | Sleep Patient Instructions ---
Sleep Center Visit Summary - Patient Visit Information Reason for Visit: First compliance follow-up - Patient Instructions Additional Instructions: You were here for follow up of CPAP therapy. You will be continued on CPAP therapy with pressure at 4-6 cmH2O. You should follow up with sleep care in 1-2 months. You may contact us sooner for any questions or concerns. - Clinic Information Contact: [facility] [address] [place] [address] [email or web address] T: [phone]
--- NOTE | 2023-07-16 14:30 | SLEEP CARE CONSULTATION ---
Information from patient questionnaire entered by Shad Marmolejo. I have reviewed and concur with the information entered by Shad Marmolejo. This document represents the service I personally performed and the decisions made by , Lupe Walsh ARNP. History of Present Illness Service Date and Time: 07/16/2023 1346 Previous diagnosis: Mild, Obstructive Sleep Apnea-Hypopnea Syndrome AHI: 5.6 (12/31/2019) Reason for follow up: first compliance Equipment type: CPAP (RESMED Airsense 11, s/u 06/08/23) Equipment obtained from: Other ([facility]; getting supplies) Mask style: Nasal Backup mask available: Yes (other mask) Last cushion change: has not changed yet Prior sleep studies: Yes Type of Sleep Study: Polysomnography (TITRATION F/U COMPLETED 05/18/23) HPI additional information: KAHLIL MURRELL was diagnosed to have mild, AHI 5.6, obstructive sleep apnea- hypopnea syndrome and returned today for CPAP therapy first compliance follow- up. Sleep Study - Results Type of Sleep Study: Polysomnography (TITRATION F/U COMPLETED 05/18/23) Prior sleep studies: Yes CPAP Compliance Data - Data Reviewed with Patient Average duration of nightly device use: 2 hours 53 minutes Compliance rate %: 17 ( days used) Current pressure setting (cmH2O): 4-6 Average residual AHI: 1 Central apnea: 0.5 Obstructive apnea: 0.4 Average large leak: 5.4 L/min Subjective Missed days of use due to: reports: illness (sinusitis in last week or so) Patient concerns: denies: aerophagia, mask discomfort, air blowing in eyes, mask leak noise, condensation in mask/hose, nasal congestion, dry mouth, nose, throat, epistaxis Observed to snore while using device: No Current pressure setting perceived as: comfortable On therapy, patient: reports: sleeping better, awakening more refreshed, more rested overall. denies: drowsiness while driving Initial [place] Sleepiness Scale score: 12 (04/07/23) Current [place] Sleepiness Scale score: 8 (07/16/23) Allergies and Home Medications Known drug allergies: No Drug allergies reviewed: Yes Home medication list reviewed: Yes (Zyrtec, Sudafed) Allergy and home medication list: Allergies No Known Drug Allergies Allergy (Verified 07/14/23 13:03) Review of Systems Review of systems same as previous: No (STEROID INJECTIONS C2-C3) Physical Exam Vital signs obtained and entered by: SHAD Peterson MA Blood Pressure: 117/82 (RIGHT ARM) Cuff size: regular Heart Rate: 118 O2 Saturation: 97 Height: 5 ft 10 in (PER PT ) Weight: 192 lb 9.6 oz Body Mass Index: 27.6 BMI Classification: Overweight Impression and Plan 1. Obstructive Sleep Apnea-Hypopnea Syndrome, mild, with fair treatment compliance and good apnea control. On CPAP therapy, the patient has better sleep quality and is more rested overall. He develops sinusitis which makes it difficult for him to use the CPAP for long periods of time. He really likes the CPAP and wants to get back to using it for longer periods of time. He has significant improvement of his sleep apnea. Patient denies problems with oral dryness, nasal congestion, epistaxis, skin irritation or aerophagia. Patient's apnea severity and rationale for treatment to reduce apnea, improve sleep quality and reduce cardiovascular and cerebrovascular events was reviewed. I also reviewed the benefit of consistent device use of CPAP for depre ssion/anxiety, migraines. 2. Overweight, unspecified. Currently patients BMI is 27.6. Obesity increases the risk of apnea, CPAP pressure requirements and overall health risks especially cardiovascular and diabetes. Thus patient is advised to lose weight. * Continue auto CPAP pressure at 4-6 cmH2O * Notify me if snoring with mask or feeling that the pressure is too much or too little * Attempt to lose weight * Call this office if any problems using CPAP * Return for follow up in 1-2 months, or sooner if concerns arise Counseling Topics: Weight loss health impact Follow up with Sleep Care in: 1-2 months Visit Type: In Office Time Spent with Patient (minutes): 15 Provider Statement: I spent 100% of the Face to Face Visit with the patient with greater than 50% spent counseling the patient and coordination of care.
[2023-07-16 14:35] VITALS: BP 117/82; O2SAT 97
== END 2023-07-16 13:47 | disposition home or self-care (01) ==
LOC: SC 13:46
PROVIDERS: ATTEND Nurse Practitioner Family
DX: G47.33 Obstructive sleep apnea (adult) (pediatric) (principal); E66.3 Overweight; Z68.27 Body mass index [BMI] 27.0-27.9, adult
CPT/HCPCS: 99212

== ENCOUNTER 2023-08-31 15:15 | Outpatient (CLI) | payer OTHER ==
--- NOTE | 2023-08-31 18:06 | XRAY Report ---
PROCEDURE: Hand 3+V RT INDICATIONS: HAND PAIN, RIGHT TECHNIQUE: 3 views of the hand(s) acquired. COMPARISON: None. FINDINGS: Bones: No fractures or dislocations. No suspicious bony lesions. Soft tissues: No suspicious soft tissue calcifications or masses. IMPRESSION: No acute bony abnormality. If clinical symptoms persist, consider a follow-up exam in 7-10 days. Reviewed by: Yamileth Simon MD on 08/31/2023 5:05 PM AKDT Approved by: Yamileth Simon MD on 08/31/2023 5:05 PM AKDT Station ID: [id number]
== END 2023-08-31 15:30 | disposition home or self-care (01) ==
LOC: DI.N 15:15
PROVIDERS: ATTEND Physician Assistant Medical
DX: M79.641 Pain in right hand (principal)